=== PATIENT | female | born 1945 | race Caucasian/White ===

== ENCOUNTER → 2017-04-10 | Day surgery (SDC) | payer MEDICARE ==
[~2017-04-10] VITALS: Ht 162.6 cm; Wt 72.3 kg
[~2017-04-10] MED LIST: ALEN35TA31 PO; ASCO100T11 PO; ATRV10T PO; AZEL137S11 NS; Bupivacaine-MPF 0.5% 30 mL Inj INFILTRATE ONE; CALC600T12 PO; Dexamethasone 4 mg/mL Inj IV ONE; Dexamethasone 4 mg/mL Inj IVPUSH PRN; EPHEDrine Sulfate 50 mg/mL Inj IVPUSH PRN; FLUT9.9S16 NS; HYDROmorphone 1 mg/mL Inj IVPUSH PRN; LATA2.5D6 OP; LEVA15HF5 IH; Lactated Ringer's 1,000 ML IV SCH; Lactated Ringer's 500 ML IV PRN; Lidocaine 1%-Epi 1:100,000 20 mL Inj INFILTRATE ONE; MONT10TA20 PO; MetoCLOpramide 5 mg/mL 2 mL Inj IVPUSH PRN; Ondansetron 2 mg/mL 2 mL Inj IVPUSH PRN; Phenylephrine 10,000 mCg/mL Inj IVPUSH PRN; Propofol 10,000 mCg/mL 20 mL Inj ONE; SYMINH INHALATION; VALA500T38 PO; ZINC30CA PO; [UNRECOGNIZED DRUG - CODE] PO; fentaNYL-PF 50 mCg/mL 2 mL Inj IVPUSH PRN
[2017-04-10] MEDS: Lactated Ringer's 1,000 ML IV SCH ×2 (12:12→14:09)
[2017-04-10 12:13] VITALS: BP 128/77; PULSE 68; RESP 14; O2SAT 97
--- NOTE | 2017-04-10 13:44 | PCM.HPANE ---
Patient Data Surgeon Admitting Provider: Attending Provider:Godfrey Cedillo DPM Primary Care Physician:Alejandra Haddad MD Other Provider:Cadence Griffin Anesthesia Reason for Visit Left Foot 2ND & 4TH Interspace Neuromas Ht/WT & BMI Height (Feet): 5 Height (Inches): 4 Weight (Kilograms): 72.3 Body Mass Index 27.00 Allergies Coded Allergies: Penicillins (Verified Allergy, Unknown, rash, nausea- as child, 04/10/17) Uncoded Allergies: INCRUSE (Allergy, Unknown, inhaler- make mouth break out, 04/06/17) Past Anesthesia History Anesthesia History: Denies:: Abnormal Airway, Anesthesia Reactions, Difficult Intubation, Fam Anesthesia Reaction, Fam Malignant Hypertherm, Malignant Hyperthermia Diabetes History Hx Diabetes?: No MRSA MRSA: No Medications Hypertension Medication: Yes Home Meds Incl Beta Tony: No Reported Medications Fluticasone Furoate (Flonase Sensimist)27.5 Mcg/Actuation [place].susp9.9 Ml NS 04/10/17 Alendronate 35 Mg Ozvmyi39 Mg PO WEEKLY Ref 0 04/10/17 Azelastine HCl 137 Mcg/0.137 Ml [place].pqcb914 Mcg NS 04/10/17 Zinc Gluconate-Zinc Picolinate (Zinc)30 Mg CapsuleUnknown Dose PO 04/10/17 Ascorbic Acid (Vitamin C)100 Mg [id number] Mg PO 04/10/17 Cyanocobalamin (Vitamin B-12) (Vitamin B-12)2,000 Mcg TabletUnknown Dose PO 04/10/17 Calcium Carbonate (Calcium)600 Mg Cineyx358 Mg PO BID 04/10/17 Levalbuterol Tartrate (Xopenex Hfa)15 Gm Hfa.aer.ad1 Puff IH Q4 PRN For Shortness of Breath #1 INH 04/06/17 Budesonide/Formoterol 160-4.5 mcg Inh (Symbicort 160-4.5 mcg Inh)120 Puff Inhaler1 Puff INHALATION BID #1 INHALER Ref 0 04/06/17 Valacyclovir 500 Mg Iywnba339 Mg PO BID PRN outbreak 04/06/17 Atorvastatin (Lipitor)10 Mg Tab10 Mg PO DAILY Ref 0 04/06/17 Latanoprost 2.5 Ml Drops1 Gtt OP HS #1 BOTTLE 04/06/17 Discontinued Reported Medications Montelukast (Singulair)10 Mg Pshrpp66 Mg PO HS Ref 0 04/06/17 History History of ENT Problems?: Yes HEENT History: Positive for:: Cataracts (forming, no surgery yet) Glaucoma (on drops) Sinus Problem (hx of sinus surgery) Denies:: Abnormal Airway Difficult Intubation Dysphagia Hearing Problem TMJ Denture Type: None Teeth Condition: Within Normal Limits Hx of Heart Problems?: Yes Cardiovascular History: Positive for:: Hypertension Irregular Heartbeat (occasional extra beat) Denies:: AICD Abdominal Aortic Aneurism Atrial Fibrillation Chest Pain Congestive Heart Failure Coronary Artery Disease Edema Heart Murmur Pacemaker Peripheral Vascular Hx of Respiratory Problem?: Yes Respiratory History: Positive for:: Asthma Pneumonia (hx of pneumonia/ bronchitis 1 year ago ) Use of C-PAP Machine Use of Inhalers / NEBS Denies:: COPD Chest Surgery Emphysema Oxygen Administration Tuberculosis Other Resp Pertinent History: hx of lung surgery twice, 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 Skin History: Denies:: History Skin Disorders? Pressure Ulcers Hx Musculoskeletal Problems?: Yes Musculoskeletal History: Positive for:: Musculoskeletal Trauma (neuroma left foot current admission problem) Osteoarthritis Denies:: Back Injury Degenerative Joint Fibromyalgia Joint Replacement Systemic Lupus Hx of Psycho/Social Problems?: No Psycho Social History: Denies:: Anxiety Hx Depression Hx Surgeries?: Yes (lung surgery, rhinoplasty, tonsil, ) Hx Any Other Health Problems?: Yes Other History: Denies:: Cancer Thyroid Disease History Blood Transfusions: Positive for:: Accept Blood Products? Blood Transfusions (after childbirth 20+ years ago) Denies:: Blood Transfuse Reaction Hx Diabetes: No Hx Alcohol Use: YesAlcoholic Drinks Per Day: one to two drinks weekyHx Substance Use: NoHave You Smoked inLast 12 mo: No Stop/Bang Treated for Sleep Apnea?: Yes Do You Have a CPAP Machine?: Yes P-Blood Pressure: treated: No B- Body Mass Index > 35 kg/m2: No A- Age over 50: Yes N- Neck Large Circumference: No G- Gender Male: No TEVIN Risk Assessment: High Risk, =/>3 Yes Risk Assessment Category Category 1A: Patient has history of documented sleep apnea, and HAS NOT received any narcotic, sedative or anesthesia administration during this stay. Category 1B: Patient has history of documented sleep apnea, and HAS received any narcotic , sedative or anesthesia administration during this stay Category 2: Patient has SUSPECTED Obstructive Sleep Apnea, and HAS received any narcotic , sedative or anesthesia administration during this stay. Category 3: Patient has SUSPECTED Obstructive Sleep Apnea and HAS NOT received narcotic, sedative or anesthesia administration during this stay. Category 4: Outpatient in Procedural Areas with known sleep apnea or who screen positive for High Risk via the STOP/BANG questionnaire. Exam Exam Vital Signs Vital Signs Date Time Temp Pulse Resp B/P Pulse Ox O2 Delivery O2 Flow Rate FiO2 04/10/17 12:13 36.7 68 14 128/77 97 Room Air General Appearance: Oriented X3 HEENT/AIRWAY: MP 2 Lungs: Normal Air Movement Heart: Regular Rate/Rhythm Meds/Labs/Diagnostics Admission Meds Current Medications Lactated Ringer's (Lr) 1,000 ml @ 120 mls/hr Q8H20M IV Last administered on t 12:12; Start 04/10/17 at 05:00; Stop 04/10/17 at 13:19; Status DC Plan Impression Patient chart reviewed, patient interviewed and anesthestic plan with risks, benefits, and alternatives discussed, and informed consent obtained. ASA Physical Status: ASA3 Severe Disease Anesthetic Plan: GA Bene/Risks/Altern/Consents: Yes HP Complete Prior to Induction: Yes Rafa Fuentes MD Apr 10, 2017 13:44
[2017-04-10 15:19] VITALS: BP 93/55; PULSE 76; RESP 16; O2SAT 97
--- NOTE | 2017-04-10 15:21 | PCM.PODBR ---
Immediate Operative Note Date of Service: Apr 10, 2017 Date of Service Apr 10, 2017 Pre Operative Diagnosis Neuroma 2nd and 4th interspace left foot Post Operative Diagnosis same Procedure excision neuroma 2nd interspace and 4th interspace left foot Surgeon Surgeon: Godfrey Cedillo DPM Assistants: None Findings neuromas Grafts, Implants: None Complications There were no periprocedural complications identified. Condition Stable Anesthetic Administered: MAC Drains: None Catheters: None Output, Estimated Blood Loss: 1 Blood Admin during surgery: No Surgical Cast or Splint: None Surgical Specimen Removed: Yes Surgical Specimen sent to Path: Yes Surgical Specimen description: neuromas 2nd and 4th interspace left foot Post Operative Plan D/c when ready F/U thursday04/13/17 @ 1145 Godfrey Cedillo DPM Apr 10, 2017 15:21
--- NOTE | 2017-04-10 15:25 | PCM.ANEP1 ---
Post Anesthesia PACU Phase 1 Assessment Vital Signs Vital Signs Date Time Temp Pulse Resp B/P Pulse Ox O2 Delivery O2 Flow Rate FiO2 04/10/17 12:13 36.7 68 14 128/77 97 Room Air Anesthetic Administered: MAC Level of Alertness: Awake, talking Pain: No Nausea or Vomiting: No CV Function & Hydration Stable: Yes Airway Device: Lungs: Normal Air Movement PACU Phase 2 Assessment Patient Instructions Provided: N/A Rafa Fuentes MD Apr 10, 2017 15:25
[2017-04-10 15:50] VITALS: BP 111/48; PULSE 57; RESP 16; O2SAT 98
--- NOTE | 2017-04-10 15:54 | OP ---
[address] [address] OPERATIVE REPORT PATIENT: LILLIE HAYWARD : 1945 MR#: [id number] ADMIT: 04/10/2017 JOB ID: [id number] DATE OF SURGERY: 04/10/2017 SURGEON: Godfrey Cedillo DPM. PREOPERATIVE DIAGNOSIS(ES): Neuromas, second and fourth intermetatarsal space, left foot. POSTOPERATIVE DIAGNOSIS(ES): Neuromas, second and fourth intermetatarsal space, left foot. SPECIFIC PROCEDURES PERFORMED: 1. Excision of neuroma, second intermetatarsal space. 2. Excision of neuroma, fourth intermetatarsal space. Both of the left foot. ANESTHESIA: Local plus IV sedation. HEMOSTASIS: Ankle pneumatic tourniquet at 250 mmHg x41 minutes. ESTIMATED BLOOD LOSS: Minimal. INDICATION: This patient had painful neuromas of the 2nd and 4th intermetatarsal spaces of her left foot. Failure of conservative care consisting of padding, alteration in shoes, physical therapy, injections all failed to provide relief. After consideration of risks and benefits, patient has asked to have removal of these neuromas. SURGERY: Patient brought to the operating room, placed on operating table in supine position and IV sedation administered. Following administration of IV sedation, 20 cc of a 1:1 mix of 1% Xylocaine with epinephrine were infiltrated about the posterior tibial nerve and across the dorsum of the foot for local anesthesia. Pneumatic tourniquet was applied to the left ankle and the left foot was then prepped and draped using aseptic manner. Anesthesia was tested and was felt to be inadequate plantarly. Therefore, an additional 7 cc of 0.5% Marcaine plain were infiltrated about the posterior tibial nerve. When anesthesia was retested it was found to be adequate. An Esmarch bandage was then applied from toes to heel to exsanguinate the foot. Tourniquet inflated to 250 mmHg and Esmarch bandage removed. Attention was turned to the dorsal aspect of the left foot. PROCEDURE ONE: A 4 cm linear incision was made over the 2nd intermetatarsal space. This skin incision was deepened via sharp dissection with superficial vessels being ligated as needed. Vital structures identified and retracted. Dissection was carried down to the intermetatarsal ligament. This ligament was sharply incised and reflected. Immediately beneath this, there was noted to be a very enlarged common digital nerve. This was dissected bluntly back into the distal arch of the foot and distally into the digital branches. At this time the nerve was transected proximally, proximal to the weightbearing surface. The digital branches were then isolated, transected, and the neuroma removed in total. Site was then lavaged. We could appreciate no additional pathologic tissue. Deep tissues were approximated with 4-0 Vicryl. Skin was then closed with 4-0 Prolene. PROCEDURE TWO: Attention was directed to the 4th intermetatarsal space where a 3 cm linear incision was made over this intermetatarsal space. The skin incision was deepened via sharp and blunt dissection with superficial vessels being ligated as needed. Vital structures were identified and retracted. Dissection was carried down to the level of the intermetatarsal ligament. This ligament was then released. Again, immediately below this, there was noted to be enlargement of the common nerve. This nerve was then dissected proximally and transected. It was then dissected distally and the digital branches were transected and the neuroma removed in total. Site was then lavaged, inspected, and there could be appreciated no additional pathologic tissue. Deep tissues were then approximated with 4-0 Vicryl. Skin closed with 4-0 Prolene. 8 mg of dexamethasone was infiltrated between the two surgical sites equally. Xeroform dressing and a dry sterile compressive dressing was applied to the foot. Tourniquet was released at 41 minutes with immediate return of color to all digits. Patient was then taken from the operating room to Day Surgery with vital signs stable, capillary refill time within normal limits to all digits with no apparent complications from the surgery or the anesthesia.
--- NOTE | 2017-04-13 16:33 | PATH ---
SURGICAL PATHOLOGY Attending Physician:Amador Giron CASE STATUS: Signed Out PATIENT NAME: LILLIE HAYWARD PID: [id number] : 1945 DATE COLLECTED:04/10/2017 00:00 SPECIMEN: Neuroma CLINICAL HISTORY: LEFT FOOT 2ND AND 4TH INTERSPACE NEUROMAS 1). 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 Section code: (A) tissue. Specimen entirely submitted. 04/11/17 ICD-9 CODES: CPT CODES: 1: 54648 Electronically Signed Out Alina Adler MD [facility] [address], [place] [address] Technical component performed at [facility], [address] [place] [address] Ave[address], [place], [address]
== END | disposition home or self-care (01) ==
LOC: SAS 11:16
PROVIDERS: ATTEND Podiatrist
DX: G57.62 Lesion of plantar nerve, left lower limb (principal); I10 Essential (primary) hypertension; J45.40 Moderate persistent asthma, uncomplicated; J30.81 Allergic rhinitis due to animal (cat) (dog) hair and dander; M19.90 Unspecified osteoarthritis, unspecified site; Z79.51 Long term (current) use of inhaled steroids
CPT/HCPCS: 28080; J1100; J2704; J7120